=== PATIENT | male | born 2000 | race Caucasian/White ===

== ENCOUNTER 2024-03-14 09:16 | Emergency (ER) | payer BC, SELFPAY ==
--- NOTE | ~2024-03-14 | XR_ITS ---
Right Hand Technique: PA, oblique, and lateral views were obtained. Clinical History: Pain Findings: No acute fracture or dislocation is seen. Osseous alignment is anatomic. Joint spaces are p reserved. Soft tissues are unremarkable. Impression: Unremarkable right hand. Reviewed, dictated and finalized at location [facility]. ADJUSTER Impression: Unremarkable right hand.
[2024-03-14 09:39] VITALS: BP 120/92; PULSE 105; RESP 16; TEMP 37.2; O2SAT 98
--- NOTE | 2024-03-14 09:52 | ED.UPPEXIN ---
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 Patient reports that he has applied ice to his right hand and has been taking Ibuprofen. Patient reports when he tries to make fist increase in pain occurs no obvious deformity or acute swelling noted full mobility but with some discomfort. MD complaint: injury to: right and hand Onset (ago): day(s) (hit on under side of table accidently) Other injuries: none Handedness: right Place: work Severity: mild Exacerbating factors: other (flexion of hand and fingers, making fist increases pain) Treatments prior to arrival: cold therapy and NSAIDS Related Data Home Medications ?Medication ?Instructions ?Recorded ?Confirmed ?Last Taken ?Type No Home Medications 03/14/24 03/14/24 Unknown History Allergies Allergy/AdvReac Type Severity Reaction Status Date / Time No Known Allergies Allergy Verified 03/14/24 09:34 Review of Systems Review of Systems: CONSTITUTIONAL: Denies fever, chills, or sweats. EYES: Denies visual changes, redness, or discharge. ENT: Denies rhinorrhea, congestion, sore throat, or otalgia. CARDIOVASCULAR: Denies chest pain, palpitations, or edema. RESPIRATORY: Denies cough or dyspnea. GASTROINTESTINAL: Denies abdominal pain, nausea, vomiting, or diarrhea. GENITOURINARY: Denies dysuria or hematuria. SKIN: Denies rash or itching. MUSCULOSKELETAL: Denies back pain, pain to right hand dorsal aspect 3rd and 4th MCP joints with no bruising noted, or myalgia. NEUROLOGIC: Denies headache, numbness, or weakness. PSYCHIATRIC: Denies anxiety or depression. All systems reviewed & are unremarkable except as noted in HPI and below PMFSH Surgical History Surgical History (Updated 03/17/24 @ 09:42 by Maria E Matson NP) [place] teeth extracted S/P ACL repair Social History Social History (Updated 03/17/24 @ 09:43 by Maria E Matson NP) Smoking status: Never smoker Alcohol intake: current Alcohol use details: social Substance use: unknown Gender identity (if verbalized by the patient): Male Comments At time of signature, agree with nursing past medical, surgical, social and family history. There is no relevant family history pertinent to the presenting complaint Exam Narrative: GENERAL: Well-appearing, well-nourished, and in no acute distress. HEAD: Normocephalic, atraumatic. EYES: PERRLA and EOMI. ENT: Nares clear, no rhinorrhea or epistaxis. Mucous membranes moist. NECK: Supple.no lymphadenopathy CHEST: Clear to auscultation. No respiratory distress.98% on room air HEART: Regular rate and rhythm. No murmur heard. Normal peripheral pulses. ABDOMEN: Soft, nontender, nondistended, normal active bowel sounds. EXTREMITIES: Normal range of motion. No edema. Pain to the 3rd and 4th MCP joint areas of right hand with no obvious deformity or swelling, continues to have some pain with movement, no acute swelling or bruising noted.patient is right hand dominant SKIN: Warm, dry, no rash. NEURO: No focal deficits. Alert and oriented x3. Course Course Emergency Course: Patient is aware of diagnosis, understands and agrees to treatment plan.? Anticipatory guidance given.? Patient agrees to follow-up as directed and is aware of reasons to seek care at the emergency department. Portions of this record may have been created with voice recognition software Level of Care: Express Care Visit Vital Signs Vital signs: Vital Signs Temperature 37.2 C 03/14/24 09:39 Pulse Rate 105 H 03/14/24 09:39 Respiratory Rate 16 03/14/24 09:39 Blood Pressure 120/92 H 03/14/24 09:39 Pulse Oximetry 98 03/14/24 09:39 Oxygen Delivery Room Air 03/14/24 09:39 Temperature 37.2 C 03/14/24 09:39 Pulse Rate 105 H 03/14/24 09:39 Respiratory Rate 16 03/14/24 09:39 Blood Pressure 120/92 H 03/14/24 09:39 Pulse Oximetry 98 03/14/24 09:39 Oxygen Delivery Room Air 03/14/24 09:39 Reviewed MDM - Extremity Injury (Upper) Differential Diagnosis Differential diagnosis: Likely fracture of hand and other (finger fracture, contusion right hand, pain right hand) Medical Records Attestation: I reviewed the patient's medical records. Imaging Data Attestation: I personally reviewed and interpreted this imaging study as follows: My impression: unremarkable right hand, no fracture Radiologist's impression: Express Care [facility] [place] [address] XRay Report Signed Patient: Wilber Zuniga : 2000 MR#: [id number] Age: 23 Acct:[id number] Loc: [id number] ADM Date: 03/14/24Attending Dr: Ordering Physician: Maria E Matson APRN Date of Service: 03/14/24 Procedure(s): XR hand RT min 3V Accession Number(s): [id number] cc: Maria E Matson APRN; UNKNOWN,DOCTOR~ Right Hand Technique: PA, oblique, and lateral views were obtained. Clinical History: Pain Findings: No acute fracture or dislocation is seen. Osseous alignment is anatomic. Joint spaces are preserved. Soft tissues are unremarkable. Impression: Unremarkable right hand. Reviewed, dictated and finalized at [facility]. FINISHER MACHINE Dictated By: Jesus Villatoro MD 03/14/24 0953 Signed By: <Electronically signed by Jesus Villatoro MD in OV> Critical Care Time Critical Care Time Critical Care Time: No Discharge Plan Discharge Clinical Impression: Contusion of hand, right Qualifiers: Encounter type: initial encounter Qualified Code(s): S60.221A - Contusion of right hand, initial encounter Patient Disposition: Home, Self-Care Condition: Stable Instructions: Contusion in Adults (ED) Additional Instructions: Tylenol for lesser pain Ibuprofen regularly for the next 2-3 days for the inflammation recommend 400-600 mg 3 times daily for 2-3 days with food Follow-up with PCP if further problems or concerns Ice to the area 20-30 minutes 4-6 times a day Elevate above heart If your symptoms persist, change or worsen significantly before you can contact your personal physician then please, without delay, go to the emergency department for further evaluation. Follow-up with PCP in 7-10 days or sooner if needed Follow up with PCP soon in regards to your blood pressure which is elevated above threshold for referral. Blood pressure above 120/80 may indicate pre-hypertension. 120/92 diastolic elevation Patient Language: Greenlandic Prescriptions: No Action No Home Medications Follow-up/Referrals: UNKNOWN,DOCTOR [Primary Care Provider] - Time of Disposition: 10:27 Quality [place] Coma Scale Eyes: Open Verbal: Oriented and Alert Motor: Follows Commands [place] Coma Total Score: 15
== END 2024-03-14 10:33 | disposition home or self-care (01) ==
PROVIDERS: Emergency Provider Registered Nurse
DX: S60.221A Contusion of right hand, initial encounter (principal); W22.8XXA Striking against or struck by other objects, initial encounter
CPT/HCPCS: 73130; 99203; G0463

== ENCOUNTER 2024-10-10 12:23 | Outpatient (CLI) | payer BC, SELFPAY ==
--- NOTE | ~2024-10-10 | XR_ITS ---
Right foot Technique: AP, oblique, and lateral views were obtained. Clinical History: Fracture Findings: There is transverse fracture the base of fifth metatarsal, essentially nondisplaced.. Joint spaces are preserved without erosive or degenerative change. Soft tissues are unremarkable. Impression: Nondisplaced transverse fracture the base of the fifth metatarsal. Reviewed, dictated and finalized at location . Impression: Nondisplaced transverse fracture the base of the fifth metatarsal.
== END 2024-10-10 12:24 | disposition home or self-care (01) ==
PROVIDERS: PCP Podiatrist Foot & Ankle Surgery; Visit Provider Podiatrist Foot & Ankle Surgery
DX: S92.354A Nondisplaced fracture of fifth metatarsal bone, right foot, initial encounter for closed fracture (principal); X58.XXXA Exposure to other specified factors, initial encounter
CPT/HCPCS: 73630